=== PATIENT | male | born 1960 | race Caucasian/White ===

== ENCOUNTER 2016-09-26 19:40 | Inpatient (IN) | payer BC, OTHER ==
[~2016-09-26] VITALS: Ht 170.2 cm; Wt 59.9 kg
[2016-09-27] MEDS ORDERED: DICYCLOMINE HCL 20 MG TABLET PO PRN
[2016-09-27] MEDS ORDERED: diphenhydrAMINE 50 MG CAPSULE PO PRN
[2016-09-27] MEDS ORDERED: LOPERAMIDE HCL 2 MG CAPSULE PO PRN ×2
[2016-09-27] MEDS ORDERED: ACETAMINOPHEN 325 MG TABLET PO PRN
[2016-09-27] MEDS ORDERED: THIAMINE HCL 200 MG/2 ML VIAL IM ONE
[2016-09-27] MEDS ORDERED: ONDANSETRON ODT 4 MG TAB.RAPDIS SL PRN
[2016-09-27] MEDS ORDERED: ONDANSETRON 4 MG/2 ML VIAL IM PRN
[2016-09-27] MEDS ORDERED: LORAZEPAM 1 MG TABLET PO PRN ×2
[2016-09-27] MEDS ORDERED: LORAZEPAM 2 MG/1 ML VIAL IM PRN
[2016-09-27] MEDS ORDERED: MAGNESIUM HYDROXIDE 30 ML LIQUID UDC PO PRN
[2016-09-27] MEDS ORDERED: MIRALAX 17 GM POWD.PACK PO PRN
[2016-09-27] MEDS ORDERED: MAG HYDROX/AL HYDROX/SIMETH 30 ML LIQUID UDC PO PRN
[2016-09-27] MEDS ORDERED: CLONIDINE HCL 0.1 MG TABLET PO PRN
[2016-09-27] MEDS ORDERED: IBUPROFEN 400 MG TABLET PO PRN
[2016-09-27 00:15] VITALS: BP 110/71
[2016-09-27] MEDS ORDERED: BUPRENORPHINE HCL 2 MG TAB.SUBL SL PRN (00:15)
--- NOTE | 2016-09-27 00:15 | NUR ---
PRE-ADMISSION NOTE SEEN PATIENT IN INTAKE. PATIENT ABLE TO ANSWER QUESTIONS APPROPRIATELY. PATIENT NOTED MILDLY INTOXICATED , BREATH SMELLS ALCOHOL. PATIENT STATES HE DOES NOT HAVE ANY ALLERGIES. NO SEIZURE HISTORY. PATIENT AMBULATES WITH GAIT SLIGHTLY WOBBLY. PATIENT STATES HES ANXIOUS , C/O HEADACHE , TREMORS AND ABDOMINAL CRAMPING. NO N/V. VS BP-110/71 P-108 T-97.8 R-16. PA-9/10. SpO2 98% IN RA. DISCUSSED TO PATIENT Q2HRS VS, UNIT POLICIES AND SMOKING POLICIES. WILL CONTINUE ADMISSION ON 3RD FLOOR.
[2016-09-27] MEDS ORDERED: THIAMINE HCL 200 MG/2 ML VIAL ONE (00:25)
--- NOTE | 2016-09-27 00:30 | NUR ---
ADMISSION NOTE RECEIVED IN THE UNIT AT THIS TIME. PATIENT IS A 56 YEAR OLD MALE WHO PRESENTS TO 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 HEIGHT IS 57 AND WEIGHT IS 132 LBS. LUNGS CLEAR AND ABDOMEN SOFT AND NON-DISTENDED. BOWEL SOUNDS ACTIVE ON ALL QUADRANT. LAST BOWEL MOVEMENT WAS MORNING BEFORE COMING HERE. NO DIFFICULTY URINATING. UA PROVIDED. BODY CHECK DONE . SKIN INTACT. PATIENT REQUESTED TO BE FULL CODE AND ON REGULAR DIET. PATIENT STATES HES HERE BECAUSE I DON'T WANT TO DO THIS ANYMORE AND MY WORK IS REQUIRING ME TO DO THIS. 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 I DON'T HAVE PCP. PATIENT REPORTS PMH OF DEPRESSION AND GALLBLADDER REMOVAL. I USED TO TAKE PAXIL FOR MY DEPRESSION BUT I HAVEN'T TAKE IT FOR A LONG TIME. HIS LONGEST PERIOD OF SOBRIETY WAS 10 YEARS AGO FOR 2 YEARS. TREATMENT HISTORY : [employer] [employer] 10 YEARS AGO-90 DAYS SUBSTANCE HISTORY: 1.ALCOHOL(RUM)-STARTED DRINKING AT AGE 13. PATIENT DRINKS GALLON DAILY FOR 10 YEARS. LAST DRINK WAS 5TH OF RUM ON 09/26/16 2.HEROIN IV-STARTED USING 2 YEARS AGO. PATIENT INJECTS 1 GRAM DAILY FOR 6 MONTHS. LAST USE WAS GRAM ON 09/25/16 3.METHAMPHETAMINE (SNORT)-STARTED USING AT AGE 16. PATIENT SNORTS 1 GRAM A WEEK/INTERMITTENTLY LAST USE WAS 3 LINES ON 09/24/16 PATIENT ORIENTED TO SURROUNDINGS AND HOW TO USE CALL LIGHT. UDS CAME BACK POSITIVE OF BENZO , PATIENT DENIES TAKING BENZO. DENIES SI/HI. PATIENT DOES NOT HAVE HOME MEDICATION. COWS 17 AND CIWA 13 . WILL CALL MD AND WILL GIVE DETAIL INFORMATION. PATIENT WAS PLACED ON FALL/SEIZURE PRECAUTION. SAFETY MEASURES IN PLACE. CALL LIGHT IN REACH. WILL CONTINUE TO MONITOR. Addendum: 09/28/16 at 0727 by MICHELLE ZAZUETA LVN ADDITIONAL NOTE PATIENT DENIES USING BENZO'S DURING ADMISSION. DR. PATEL NOTES. PATIENT IS USING ATIVAN 6 MG DAILY . LAST USE WAS UPON ADMISSION.
[2016-09-27 01:09] LABS: *AMPHETAMINE, URINE POSITIVE (NEGATIVE); *BARBITURATE, URINE NEGATIVE (NEGATIVE); *CANNABINOID, URINE NEGATIVE (NEGATIVE); *COCCAINE, URINE NEGATIVE (NEGATIVE); *OPIATE, URINE NEGATIVE (NEGATIVE); *PHENCYCLIDINE SCREEN,URINE NEGATIVE (NEGATIVE)
[2016-09-27] MEDS ORDERED: METHOCARBAMOL 750 MG TABLET PO PRN (01:15)
--- NOTE | 2016-09-27 01:19 | NUR ---
PRN BENTYL AND TYLENOL ADMINISTRATION PATIENT C/O ABDOMINAL CRAMPING AND HEADACHE 11/12. PRN TYLENOL AND BENTYL GIVEN. WILL MONITOR FOR EFFECTIVENESS
--- NOTE | 2016-09-27 01:25 | NUR ---
VITAMIN B1 ADMINISTRATION PATIENT WAS GIVEN VITAMIN B1 INJECTION ON LEFT DELTOID.
[2016-09-27] MEDS ORDERED: ACETAMINOPHEN 325 MG TABLET ONE (01:30)
[2016-09-27] MEDS ORDERED: DICYCLOMINE HCL 20 MG TABLET ONE (01:30)
[2016-09-27 01:59] LABS: BASOPHILS # (AUTO) 0.1 K/uL (0.0-8.0); EOSINOPHILS # (AUTO) 0.2 K/uL (0.0-0.7); EOSINOPHILS % (AUTO) 2.2 % (0.0-7.0); HEMATOCRIT 40.9 % (40-50); HEMOGLOBIN 14.5 G/DL (14.0-18.0); LYMPHOCYTES # (AUTO) 2.3 K/UL (0.8-4.8); LYMPHOCYTES % (AUTO) 29.6 % (20.5-51.5); MEAN CORPUSCULAR HEMOGLOBIN 35.1 UUG (27.0-31.0); MEAN CORPUSCULAR HGB CONC 36 g/dL (32.0-37.0); MEAN CORPUSCULAR VOLUME 98.9 FL (82.0-92.0); MONOCYTES # (AUTO) 0.5 K/UL (0.1-1.30); NEUTROPHILS # (AUTO) 4.6 K/UL (1.8-8.9); NEUTROPHILS % (AUTO) 60.2 % (38.5-71.5); PLATELET COUNT (AUTO) 246 K/UL (150-450); RED BLOOD CELL COUNT(AUTO) 4.14 MIL/UL (4.7-6.1); WHITE BLOOD COUNT (AUTO) 7.7 K/UL (4.0-11.2)
--- NOTE | 2016-09-27 02:03 | NUR ---
PRN ATIVAN GIVEN PATIENT C/O SEVERE ANXIETY, RESTLESSNESS , UNABLE TO SIT STILL . PRN ATIVAN GIVEN. CIWA 13. REDIRECTION INEFFECTIVE WILL MONITOR FOR EFFECTIVENESS
[2016-09-27] MEDS ORDERED: LORAZEPAM 1 MG TABLET ONE (02:11)
--- NOTE | 2016-09-27 02:18 | NUR ---
PRN SUBUTEX ADMINISTRATION PATIENT STATES HE DOES NOT FEEL GOOD,PATIENT C/O ANXIETY, STOMACH CRAMPING, SWEATING, RESTLESSNESS, PATIENT STATES HE DOES NOT FEEL GOOD, TREMULOUS. COWS 17. WILL MONITOR FOR EFFECTIVENESS
[2016-09-27 02:21] LABS: BILIRUBIN,TOTAL 1.7 mg/dL (0.2-1.0); CREATININE 1.1 mg/dL (0.6-1.3); MAGNESIUM 1.9 mg/dL (1.8-2.4); POTASSIUM 3.7 mmol/L (3.5-5.1)
[2016-09-27] MEDS ORDERED: BUPRENORPHINE HCL 2 MG TAB.SUBL SL ONE (02:23)
[2016-09-27 02:33] LABS: THYROID STIMULATING HORMONE 1.904 mIU/mL (0.358-3.740)
--- NOTE | 2016-09-27 02:48 | NUR ---
PRN SUBUTEX RE-ASSESSMENT PATIENT STATES SUBUTEX HELPFUL. CIWA IS NOW 5. PATIENT STATES HE FEELS MUCH BETTER
--- NOTE | 2016-09-27 03:03 | NUR ---
PRN ATIVAN RE-ASSESSMENT PATIENT STATES ANXIETY SUBSIDED. ATIVAN HELPFUL. CIWA IS NOW 5.
[2016-09-27 04:00] VITALS: BP 95/63
--- NOTE | 2016-09-27 07:17 | NUR ---
END OF SHIFT NOTE PATIENT NEWLY ADMITTED FOR ETOH/OPIATE AND METH DEPENDENCE. PATIENT WAS GIVEN PRN BENTYL, TYLENOL, SUBUTEX AND ATIVAN. B1 INJECTION GIVEN ON LEFT DELTOID. PATIENT SLEPT 4 HOURS. FLUID INTAKE 1,100. VOIDED X 1. NO BM. LAST COWS 3 AND CIWA 2. ON FALL/SEIZURE PRECAUTION. SAFETY MEASURES IN PLACE. CALL LIGHT IN REACH. WILL CONTINUE TO MONITOR
--- NOTE | 2016-09-27 07:30 | NUR ---
START OF SHIFT NOTE Received report from night nurse, 56 year old male admitted for ETOH, Heroin/Meth dependence. NKA,Regular diet, Full code. Pt reported PMH of depression, gallbladder removal. Pt were given PRN medication per endorsement. Pt slept for 4 hours, Last CIWA-2, COWS-3. Received patient in bed alert awake oriented x4, respirations even and unlabored. Skin intact warm and dry to touch. Educated regarding plan of care for the day and medication regimen with good verbal understanding. Safety measures in place, call light kept with in reach. Will cont to monitor.
[2016-09-27 08:00] VITALS: BP 113/76
[2016-09-27] MEDS: THIAMINE HCL 100 MG TABLET PO SCH (08:46)
[2016-09-27] MEDS: FOLIC ACID 1 MG TABLET PO SCH (08:46)
[2016-09-27] MEDS: LORAZEPAM 1 MG TABLET PO SCH ×4 (08:46→21:31)
[2016-09-27] MEDS: MULTIVITAMINS,THERAPEUTIC TABLET PO SCH (08:46)
[2016-09-27] MEDS ORDERED: TUBERCULIN,PURIF.PROT.DERIV. 5 TU/0.1 ML TEST ID ONE (09:00)
[2016-09-27 12:00] VITALS: BP 109/72
[2016-09-27] MEDS: BUPRENORPHINE HCL 2 MG TAB.SUBL SL SCH ×3 (12:38→21:32)
--- NOTE | 2016-09-27 15:15 | NUR ---
Pt seen and examined by Dr. Calvillo
[2016-09-27 16:00] VITALS: BP 127/87
--- NOTE | 2016-09-27 19:21 | NUR ---
END OF SHIFT NOTE Gave report to night nurse, 56 year old male admitted for ETOH, Heroin/Meth dependence. NKA,Regular diet, Full code. Pt reported PMH of depression, gallbladder removal. Pt started on 5 days Ativan taper this morning tolerating well. Pt did not receive any PRN during shift. Vital signs WNL. Last CIWA-6, COWS-8. Encourage Po fluids as ordered. Patient encouraged to attend group/therapy sessions to learn new coping skills to prevent relapse, denies SI/HI. Patient compliant with plan of care during shift. Safety measures in place. call light kept with in reach. Patient endorsement report given to car shifter nurse. Will cont to monitor.
[2016-09-27 20:00] VITALS: BP 112/77
--- NOTE | 2016-09-27 20:00 | NUR ---
START OF SHIFT NOTE RECEIVED REPORT FROM DAY SHIFT NURSE. PATIENT IS A 56 YEAR OLD MALE ADMITTED FOR ETOH/OPIATE/METH DEPENDENCE. UPON ADMISSION, PATIENT REPORTED ALCOHOL (RUM) /2 GALLON FOR 10 YEARS , HEROIN IV 1 GRAM FOR 6 MONTHS AND METH (SNORT) 1 GRAM FOR A WEEK/ INTERMITTENTLY PATIENT WAS STARTED ON ATIVAN AND SUBUTEX TAPER TODAY. PATIENT IN HIS ROOM MOST OF THE TIME. PATIENT DID NOT REQUIRE ANY PRN MEDICATION. LAST COWS 8 AND CIWA 6. ON FALL/SEIZURE PRECAUTION. SAFETY MEASURES IN PLACE. CALL LIGHT IN REACH. WILL CONTINUE TO MONITOR
[2016-09-28] VITALS: BP 120/75
[2016-09-28 04:00] VITALS: BP 109/76
--- NOTE | 2016-09-28 07:22 | NUR ---
END OF SHIFT NOTE PATIENT IS A 56 YEAR OLD MALE ADMITTED FOR ETOH/OPIATE/METH DEPENDENCE. UPON ADMISSION, PATIENT REPORTED ALCOHOL (RUM) /2 GALLON FOR 10 YEARS , HEROIN IV 1 GRAM FOR 6 MONTHS AND METH (SNORT) 1 GRAM FOR A WEEK/ INTERMITTENTLY PATIENT WAS STARTED ON ATIVAN AND SUBUTEX TAPER TODAY. PATIENT IN HIS ROOM MOST OF THE TIME. PATIENT DID NOT REQUIRE ANY PRN MEDICATION. LAST COWS 8 AND CIWA 6. ON FALL/SEIZURE PRECAUTION. SAFETY MEASURES IN PLACE. CALL LIGHT IN REACH. WILL CONTINUE TO MONITOR. SLEPT 10 HOURS. FLUID INTAKE 791 ML. VOIDED X 2. NO BM. LAST COWS 3 AND CIWA .3
--- NOTE | 2016-09-28 07:25 | NUR ---
Start of Shift Report form night nurse: pt is a 56 y/o male her for Etoh r/t Rum, Opiates r/t Heroin IV 1g daily, Methamphetamine r/t 1g snorted a week and Benzo r/t Ativan 6mg used occasionally; 5 day Ativan and 5 day Subutex tapers ordered. Pt is a full code, Regular diet, NKA, fall and seizure precautions ordered. HHX: Depression, Gallbladder surgery and a relapse. Skin is intact with no open wounds. V/S stable. No PRN medications given last night. No abnormal labs endorsed to me. Last CIWA 3 COWS 3. Pt is asleep in room. Will cont. to monitor the pt.
[2016-09-28 08:00] VITALS: BP 110/67
[2016-09-28] MEDS: LORAZEPAM 1 MG TABLET PO SCH ×3 (08:54→20:59)
[2016-09-28] MEDS: FOLIC ACID 1 MG TABLET PO SCH (08:54)
[2016-09-28] MEDS: THIAMINE HCL 100 MG TABLET PO SCH (08:55)
[2016-09-28] MEDS: MULTIVITAMINS,THERAPEUTIC TABLET PO SCH (08:55)
[2016-09-28 08:58] LABS: BILIRUBIN,DIRECT 0.4 mg/dL (0.0-0.2); CREATININE 1.1 mg/dL (0.6-1.3); MAGNESIUM 1.6 mg/dL (1.8-2.4); POTASSIUM 4.1 mmol/L (3.5-5.1); TOTAL PROTEIN, SERUM 7.3 g/dL (6.4-8.2)
[2016-09-28] MEDS: BUPRENORPHINE HCL 2 MG TAB.SUBL SL SCH ×4 (09:01→20:59)
[2016-09-28 10:12] LABS: HEPATITIS B SURFACE AG Negative (Negative)
[2016-09-28 12:00] VITALS: BP 109/66
[2016-09-28] MEDS ORDERED: MAGNESIUM OXIDE 400 MG TABLET PO ONE ×2 (15:00→21:30)
--- NOTE | 2016-09-28 15:00 | NUR ---
New Orders-Magnesium Low magnesium 1.6; notified Dr. Piper and new orders for Mag-Ox 400mg once given as ordered. Will cont. to monitor the pt.
[2016-09-28 16:00] VITALS: BP 99/72
--- NOTE | 2016-09-28 19:38 | NUR ---
End of Shift Report to night nurse: pt is a 56 y/o male her for Etoh r/t Rum, Opiates r/t Heroin IV 1g daily, Methamphetamine r/t 1g snorted a week and Benzo r/t Ativan 6mg used occasionally; 5 day Ativan and 5 day Subutex tapers ordered. Pt is a full code, Regular diet, NKA, fall and seizure precautions ordered. HHX: Depression, Gallbladder surgery and a relapse. Skin is intact with no open wounds yet pt has pedal edema on left foot so endorse to night nurse to f/u with recommendation of ice packet. V/S stable. Pt c/o oliguria so bladder scan done with 28cc residual and Dr. Piper notified. No PRN medications given during my shift. Last CIWA 4 COWS 8.
[2016-09-28 20:00] VITALS: BP 116/75
--- NOTE | 2016-09-28 20:00 | NUR ---
Start of Shift Pt is a 56 year old male admitted for ETOH/Opiate dependence, placed on 5 day Subutex taper and 5 day Ativan taper. Pt reports consuming Rum 0.5 gall/daily, heroin IV 1g/daily, methamphetamine (snort) 1 g/weekly and reported use of Ativan 6mg intermittently. PMH: Depression and Gallbladder removal, NKA, regular diet, fall/seizure precautions no hx of seizures and full code. Upon assessment, pt presents with anxiety, tremors visible, reports chills/aches throughout body, nose stuffy with teary eyes, mild headache, clammy/sweaty skin, Respirations even/unlabored, denies SOB/chest pain, denies n/v/d, bowel sounds active x4, abdomen soft. Medications due. Safety measures in place, call light within reach, side rails up x2, bed locked and in low position. Will continue to monitor
[2016-09-28] MEDS: GABAPENTIN 300 MG CAPSULE PO SCH (20:58)
[2016-09-28] MEDS: BACLOFEN 10 MG TABLET PO SCH (20:59)
[2016-09-28] MEDS: DICYCLOMINE HCL 20 MG TABLET PO SCH (20:59)
[2016-09-28] MEDS: CLONIDINE HCL 0.1 MG TABLET PO SCH (21:02)
--- NOTE | 2016-09-28 21:45 | NUR ---
Start of Shift Patient is a 56-year old, male, admitted for ETOH, Opiate and Methamphetamine dependence. PT with NKA, on Regular Diet and is Full Code. Pt placed on a 5-day Subutex taper and 5-day Ativan tapers, startetd 09/27/2016. PMH: Depression and Gallbladder removal. Pt is AAOx4 and with mild anxiety noted. No SOB. Pt is ambulatory with steady gait and no skin issues. Fall, universal and safety prec in place. Call light within reach. Latest COWS=5, CIWA=6. Will continue to monitor. Addendum: 09/29/16 at 0242 by NIKA DE LA CRUZ RN Correction: Received Endorsement
[2016-09-29] VITALS: BP 118/82
[2016-09-29 04:00] VITALS: BP 112/79
--- NOTE | 2016-09-29 07:25 | NUR ---
End of Shift Patient is a 56-year old, male, admitted for ETOH, Opiate and Methamphetamine dependence. PT with NKA, on Regular Diet and is Full Code. Pt placed on a 5-day Subutex taper and 5-day Ativan tapers, startetd 09/27/2016. PMH: Depression and Gallbladder removal. Pt is AAOx4 and with mild anxiety noted. No SOB. Pt is ambulatory with steady gait and no skin issues. Fall, universal and safety prec in place. Call light within reach. Latest COWS=4, CIWA=4, slept for 8 hours. Endorsed to AM shift nurse for continuity of care.
--- NOTE | 2016-09-29 07:30 | NUR ---
START OF SHIFT Rcvd endorsement from ongoing nurse, client is in room, a/o x4 , he stated "I have trouble walking because of my Left foot and my feet feel restless." Client reports a hx of gout, he presents with depressed mood, flat affect, flushed face, fine tremors noted, he denies any N/V/D, he denies any SI/HI. He had an uneventful night, he slept 8 hrs. Last COWS 4/ CIWA 4. 3rd of 5 day Subutex/Ativan taper, tolerating well. Client is a 56-year old, male, admitted for alcohol, benzodiazepine and Heroin withdrawal. NKA,Regular Diet, Full Code. Client denies any hx of withdrawal induced seizures. He is on seizure precautions. Call light within reach. Side rails x 2 up/padded. Will continue to monitor.
[2016-09-29 08:00] VITALS: BP 106/65
--- NOTE | 2016-09-29 08:49 | NUR ---
Zero induration noted at Left forearm TB site.
[2016-09-29] MEDS: FOLIC ACID 1 MG TABLET PO SCH (08:52)
[2016-09-29] MEDS: BACLOFEN 10 MG TABLET PO SCH ×3 (08:53→21:00)
[2016-09-29] MEDS: THIAMINE HCL 100 MG TABLET PO SCH (08:53)
[2016-09-29] MEDS: GABAPENTIN 300 MG CAPSULE PO SCH (08:53)
[2016-09-29] MEDS: LORAZEPAM 1 MG TABLET PO SCH ×4 (08:53→21:00)
[2016-09-29] MEDS: MULTIVITAMINS,THERAPEUTIC TABLET PO SCH (08:53)
[2016-09-29] MEDS: CLONIDINE HCL 0.1 MG TABLET PO SCH ×2 (08:53→21:00)
[2016-09-29] MEDS: DICYCLOMINE HCL 20 MG TABLET PO SCH ×3 (08:53→21:00)
[2016-09-29] MEDS ORDERED: BUPRENORPHINE HCL 2 MG TAB.SUBL SL SCH (09:00)
[2016-09-29] MEDS ORDERED: NAPROXEN 500 MG TABLET PO ONE (12:45)
[2016-09-29 12:55] VITALS: BP 98/67
[2016-09-29] MEDS: GABAPENTIN 400 MG CAPSULE PO SCH ×2 (14:47→21:00)
[2016-09-29] MEDS: BUPRENORPHINE HCL 2 MG TAB.SUBL SL SCH ×2 (14:47→21:00)
[2016-09-29 16:55] VITALS: BP 113/63
--- NOTE | 2016-09-29 19:30 | NUR ---
END OF SHIFT Give endorsement to incoming nurse, client is in room, a/o x4 , he continues to presents with depressed mood, flat affect, flushed face and fine tremors noted, he denies any N/V/D, he denies any SI/HI. Client was not compliant with group therapy. One time dose of Naproxin for pain on L big toe administered, noted effective. Last COWS 7/ CIWA 6. 3rd of 5 day Subutex/Ativan taper, tolerating well. Client is a 56-year old, male, admitted for alcohol, benzodiazepine and Heroin withdrawal. NKA,Regular Diet, Full Code. Client denies any hx of withdrawal induced seizures. He is on seizure precautions. Call light within reach. Side rails x 2 up/padded. All needs met.
--- NOTE | 2016-09-29 19:31 | NUR ---
Start of shift note Received report from day shift nurse. Pt is a56 yo male, A+Ox4, presenting to [facility] for ETOH/Opiate/Benzo/Methamphetamine dependence. Pt has NKA, is on Full code status, and on Regular diet. Pt is on Fall and Seizure precautions. Pt has HX of Depression, Gall bladder removal, and gout. Pt is on 5 day Ativan and 5 day Subutex tapers, tolerated well. No s/s of distress noted at this time. Respirations even and unlabored. Will continue to monitor.
[2016-09-29 20:44] VITALS: BP 118/69
[2016-09-29] MEDS: NAPROXEN 500 MG TABLET PO SCH (21:00)
[2016-09-30 00:44] VITALS: BP 107/73
[2016-09-30 04:14] VITALS: BP 118/75
--- NOTE | 2016-09-30 06:57 | NUR ---
End of shift note Pt is a 56 yo male, A+Ox4, presenting to [facility] for ETOH/Opiate/Benzo/Methamphetamine dependence. Pt has NKA, is on Full code status, and on Regular diet. Pt is on Fall and Seizure precautions. Pt has HX of Depression, Gall bladder removal, and gout. Pt is on 5 day Ativan and 5 day Subutex tapers, tolerated well. Pt slept for a total of 9 HRS. Last COWS: 1 and Last CIWA: 2 @0400. No s/s of distress noted at this time. Respirations even and unlabored. Will endorse to day shift nurse.
--- NOTE | 2016-09-30 07:30 | NUR ---
START OF SHIFT Rcvd endorsement from ongoing nurse, client is in room, a/o x4 , he presents with depressed mood, flat affect, he reports restless legs, he denies any N/V/D, he denies any SI/HI. He had an uneventful night, he slept 9 hrs. Last COWS WA 2. 4rd of 5 day Subutex/Ativan taper, tolerating well. Client is a 56-year old, male, admitted for alcohol, benzodiazepine and Heroin withdrawal. NKA,Regular Diet, Full Code. Client denies any hx of withdrawal induced seizures. He is on seizure precautions. Call light within reach. Side rails x 2 up/padded. Will continue to monitor.
[2016-09-30] MEDS: BACLOFEN 10 MG TABLET PO SCH ×3 (08:21→20:18)
[2016-09-30] MEDS: GABAPENTIN 400 MG CAPSULE PO SCH ×3 (08:21→20:18)
[2016-09-30] MEDS: FOLIC ACID 1 MG TABLET PO SCH (08:22)
[2016-09-30] MEDS: BUPRENORPHINE HCL 2 MG TAB.SUBL SL SCH ×3 (08:22→20:18)
[2016-09-30] MEDS: MULTIVITAMINS,THERAPEUTIC TABLET PO SCH (08:22)
[2016-09-30] MEDS: THIAMINE HCL 100 MG TABLET PO SCH (08:22)
[2016-09-30] MEDS: NAPROXEN 500 MG TABLET PO SCH ×2 (08:22→20:18)
[2016-09-30] MEDS: CLONIDINE HCL 0.1 MG TABLET PO SCH ×2 (08:22→20:18)
[2016-09-30] MEDS: FAMOTIDINE 20 MG TABLET PO SCH (08:22)
[2016-09-30] MEDS: LORAZEPAM 1 MG TABLET PO SCH ×3 (08:22→20:18)
[2016-09-30] MEDS: DICYCLOMINE HCL 20 MG TABLET PO SCH ×3 (08:22→20:18)
[2016-09-30 08:38] VITALS: BP 120/79
[2016-09-30 12:00] VITALS: BP 110/70
[2016-09-30 16:55] VITALS: BP 95/73
--- NOTE | 2016-09-30 19:30 | NUR ---
END OF SHIFT Give endorsement to incoming nurse, client is in room, a/o x4 , he continues to presents with depressed mood, flat affect, flushed face and fine tremors noted, he denies any N/V/D, he denies any SI/HI. Client was not compliant with group therapy. Last COWS / 5. 4th of 5 day Subutex/Ativan taper, tolerating well. Client is a 56-year old, male, admitted for alcohol, benzodiazepine and Heroin withdrawal. NKA,Regular Diet, Full Code. Client denies any hx of withdrawal induced seizures. He is on seizure precautions. Call light within reach. Side rails x 2 up/padded. All needs met.
--- NOTE | 2016-09-30 19:33 | NUR ---
Start of shift note Received report from day shift nurse. Pt is a56 yo male, A+Ox4, presenting to [facility] for ETOH/Opiate/Benzo/Methamphetamine dependence. Pt has NKA, is on Full code status, and on Regular diet. Pt is on Fall and Seizure precautions. Pt has HX of Depression, Gall bladder removal, and gout. Pt is on 5 day Ativan and 5 day Subutex tapers, tolerated well. No s/s of distress noted at this time. Respirations even and unlabored. Will continue to monitor.
[2016-09-30 20:33] VITALS: BP 116/76
[2016-10-01 00:12] VITALS: BP 114/80
[2016-10-01 04:07] VITALS: BP 110/76
--- NOTE | 2016-10-01 07:00 | NUR ---
End of shift note Pt is a 56 yo male, A+Ox4, presenting to [facility] for ETOH/Opiate/Benzo/Methamphetamine dependence. Pt has NKA, is on Full code status, and on Regular diet. Pt is on Fall and Seizure precautions. Pt has HX of Depression, Gall bladder removal, and gout. Pt is on 5 day Ativan and 5 day Subutex tapers, tolerated well. Pt slept for a total of 9 HRS. Last COWS: 2 and Last CIWA: 2 @0400. No s/s of distress noted at this time. Respirations even and unlabored. Will endorse to day shift nurse.
--- NOTE | 2016-10-01 07:30 | NUR ---
start of shift note: received pt from shift manager nurse, pt is in stable condition at this time no s/s of pain or discomfort. pt is admitted to [facility] for opiate/etoh/meth/benzo withdrawal/dependence. pt is tolerating taper well. last cows 2 and last ciwa 1. will continue to monitor pt for any changes. and continue to meet pts needs
[2016-10-01] MEDS: BACLOFEN 10 MG TABLET PO SCH ×3 (08:45→22:06)
[2016-10-01] MEDS: NAPROXEN 500 MG TABLET PO SCH ×2 (08:45→21:00)
[2016-10-01] MEDS: BUPRENORPHINE HCL 2 MG TAB.SUBL SL SCH ×2 (08:45→22:07)
[2016-10-01] MEDS: CLONIDINE HCL 0.1 MG TABLET PO SCH ×2 (08:45→22:05)
[2016-10-01] MEDS: DICYCLOMINE HCL 20 MG TABLET PO SCH ×3 (08:45→22:05)
[2016-10-01] MEDS: GABAPENTIN 400 MG CAPSULE PO SCH ×3 (08:45→22:06)
[2016-10-01] MEDS: FOLIC ACID 1 MG TABLET PO SCH (08:45)
[2016-10-01] MEDS: FAMOTIDINE 20 MG TABLET PO SCH (08:46)
[2016-10-01] MEDS: THIAMINE HCL 100 MG TABLET PO SCH (08:46)
[2016-10-01] MEDS: MULTIVITAMINS,THERAPEUTIC TABLET PO SCH (08:46)
[2016-10-01] MEDS: LORAZEPAM 1 MG TABLET PO SCH ×2 (08:46→22:05)
[2016-10-01 08:50] VITALS: BP 101/65
[2016-10-01 13:46] VITALS: BP 99/63
[2016-10-01 17:49] VITALS: BP 122/82
--- NOTE | 2016-10-01 18:56 | NUR ---
END OF SHIFT NOTE: PT IS IN STABLE CONDITION AT THIS TIME, NO S/S OF PAIN OR DISCOMFORT. PT'S LAST COWS 2 AND CIWA 2. PT TOLERATED TAPER MEDICATIONS WELL. PT IS ADMITTED TO [facility] FOR OPIATE/BENZO/METH/ETOH WITHDRAWAL/DEPENDENCE. PT VERBALIZED THE PAIN IN HIS FOOT IS GETTING BETTER. AND SWELLING HAS DECREASED. WILL ENDORSE PT TO [facility] MACHINE MAINTENANCE MECHANIC NURSE.
--- NOTE | 2016-10-01 19:40 | NUR ---
PRN Toradol Pt c/o left foot gout pain 10/12. PRN Toradol administered. Feet are elevated while in bed. Addendum: 10/02/16 at 0207 by GIOVANI BERNABE RN Incorrect time documented.
--- NOTE | 2016-10-01 19:40 | NUR ---
START OF SHIFT Received report from day shift nurse. Pt is lying in bed resting. He is a 56 yo male [facility] for ETOH and opiate dependence. He is A&O and ambulatory. He uses a wheelchair as needed due to gout pain. NKA, full code status, and on regular diet. He has a PMH of gout, gallbladder removal, and depression. On admission he report drinking rum 1/2 gallon per day, using heroin 1 gram per day, methamphetamine 1 gram per week, and Ativan intermittently. 5 day Subutex and 5 day Ativan tapers started 09/27. He reports left foot pain r/t gout, body aches, and anxiety. He has moist skin and mild tremors. Tapers due tonight. Fall and seizure precautions in place. Bed is down with call light in reach.
[2016-10-01 20:00] VITALS: BP 111/68
[2016-10-01] MEDS: KETOROLAC TROMETHAMINE 30 MG INJ IM PRN (22:11)
--- NOTE | 2016-10-01 22:12 | NUR ---
PRN Toradol Pt c/o left foot gout pain 10/12. PRN Toradol administered. Feet are elevated while in bed.
--- NOTE | 2016-10-01 22:42 | NUR ---
PRN Toradol reassessment PRN Toradol effective. Pt reports pain level is reduced to 3/10.
[2016-10-02] VITALS: BP 122/73
--- NOTE | 2016-10-02 02:13 | NUR ---
PRN Benadryl Pt reports inability to sleep. PRN Benadryl administered.
--- NOTE | 2016-10-02 03:13 | NUR ---
PRN Benadryl reassessment PRN Benadryl effective. Pt is lying in bed resting with eyes closed. Respirations even and unlabored. Safety measures in place.
--- NOTE | 2016-10-02 07:00 | NUR ---
Start of Shift Endorsement received from nightshift nurse. Pt is a 56 y/o pt admitted for alcohol and heroin dependence. Pt is on a 5 day Ativan and 5 day Subutex taper. Pt is tolerating both tapers well AEB CIWA 3, COWS 3 at 0400. PT received PRN Toradol and Benadryl. Pt complains of leg pain caused by gout. Pt reports sleeping 5 hours. VS WNL. Full Code. Pt is expected to complete both tapers today. PT is alert and oriented x4. Pt is in STABLE condition at this time. Remains compliant with medication and diet regimen. All needs have been met, All safety measures in place per hospital policy. Bed in lowest position, side rails up x2, call-light within reach. Will continue to monitor
--- NOTE | 2016-10-02 07:26 | NUR ---
END OF SHIFT Report provided to day shift nurse. Pt is lying in bed resting. He is a 56 yo male admitted to [facility] on 09/27 for ETOH and opiate dependence. He is A&O and ambulatory. NKA, full code status, and on regular diet. He has a PMH of gout, gallbladder removal, and depression. On admission he report drinking rum 1/2 gallon per day, using heroin 1 gram per day, methamphetamine 1 gram per week, and Ativan intermittently. He started 5 day Subutex and 5 day Ativan tapers on 09/27. Right foot is swollen and painful r/t gout. He uses a wheelchair as needed. PRN Toradol and Benadryl administered and he slept 4 hours. with legs elevated. Last COWS 3 and CIWA 3. Fall and seizure precautions in place.
[2016-10-02 08:00] VITALS: BP 127/79
[2016-10-02] MEDS ORDERED: BUPRENORPHINE HCL 2 MG TAB.SUBL SL SCH (09:00)
[2016-10-02] MEDS: GABAPENTIN 400 MG CAPSULE PO SCH ×3 (09:48→20:46)
[2016-10-02] MEDS: MULTIVITAMINS,THERAPEUTIC TABLET PO SCH (09:48)
[2016-10-02] MEDS: BACLOFEN 10 MG TABLET PO SCH ×2 (09:48→14:28)
[2016-10-02] MEDS: NAPROXEN 500 MG TABLET PO SCH ×2 (09:49→21:00)
[2016-10-02] MEDS: CLONIDINE HCL 0.1 MG TABLET PO SCH ×2 (09:49→20:46)
[2016-10-02] MEDS: FAMOTIDINE 20 MG TABLET PO SCH (09:49)
[2016-10-02] MEDS: THIAMINE HCL 100 MG TABLET PO SCH (09:49)
[2016-10-02] MEDS: FOLIC ACID 1 MG TABLET PO SCH (09:49)
[2016-10-02] MEDS: DICYCLOMINE HCL 20 MG TABLET PO SCH ×2 (09:49→14:28)
[2016-10-02] MEDS ORDERED: TRAZODONE 50 MG TABLET PO PRN (11:30)
[2016-10-02 12:00] VITALS: BP 120/73
[2016-10-02] MEDS ORDERED: DICYCLOMINE HCL 20 MG TABLET PO PRN (15:45)
[2016-10-02 16:00] VITALS: BP 114/75
[2016-10-02] MEDS ORDERED: BACLOFEN 20 MG TABLET PO PRN (16:00)
[2016-10-02 17:16] LABS: *AMPHETAMINE, URINE NEGATIVE (NEGATIVE); *BARBITURATE, URINE NEGATIVE (NEGATIVE); *CANNABINOID, URINE NEGATIVE (NEGATIVE); *COCCAINE, URINE NEGATIVE (NEGATIVE); *OPIATE, URINE NEGATIVE (NEGATIVE); *PHENCYCLIDINE SCREEN,URINE NEGATIVE (NEGATIVE)
[2016-10-02] MEDS ORDERED: CLON0.1T14 PO (17:18)
[2016-10-02] MEDS ORDERED: BACL20TA PO (17:18)
[2016-10-02] MEDS ORDERED: NAPR500T3 PO (17:18)
[2016-10-02] MEDS ORDERED: TRAZ-144 PO (17:18)
[2016-10-02] MEDS ORDERED: DICY20TA28 PO (17:18)
[2016-10-02] MEDS ORDERED: FAMO20TA8 PO (17:18)
[2016-10-02] MEDS ORDERED: GABA-536 PO (17:18)
[2016-10-02] MEDS ORDERED: DIPH50CA37 PO (17:22)
--- NOTE | 2016-10-02 19:12 | NUR ---
End of Shift Endorsement given to nightshift nurse. Pt is a 56 y/o pt admitted for alcohol and heroin dependence. Pt is on a 5 day Ativan and 5 day Subutex taper. Pt is tolerating both tapers well AEB CIWA 1, COWS 1 at 1600. PT did not receive any PRN medications. Pt has completed both tapers and has been scheduled to be discharged on 10/03/16. All discharge documentation has been completed, all discharge education has been provided. Intake: 1550ml, BM x2, Void x2. VS WNL. Full Code. Pt is expected to complete both tapers today. PT is alert and oriented x4. Pt is in STABLE condition at this time. Remains compliant with medication and diet regimen. All needs have been met, All safety measures in place per hospital policy. Bed in lowest position, side rails up x2, call-light within reach. Will continue to monitor
[2016-10-02 20:00] VITALS: BP 130/72
--- NOTE | 2016-10-02 20:00 | NUR ---
1999 Patient received awake, alert and sitting up in his bed watching television. Patient responds to nurse's greeting and introduction with, " Hi". Patient is oriented to person, place, day, date, time and his personal situation. Patient's color is estevez-pink and his skin is warm, very slightly moist and intact. Patient's Left great toe and immediate area around it, is slightly reddened and moderately swollen and tender to the touch. Patient states, " I have gout and it needs to be treated with some medication, but I talked to Dr. Piper and he said that they don't treat medical conditions on the detox floor. Patient states further that he can barely get around at this time, without a wheelchair for assistance with ambulation and he does not want to go to rehab tomorrow as scheduled, because, " I know they're not going to accommodate me there with this problem, so I need to get this gout fixed first, then I'll be glad to go to rehab. It's not that I don't want to go, I do, just not like this". Patient denies the need for any pain medication at this time and he voices no requests for anything. Vital signs are: 98-94-20 130/72, O2 Sat 98%, COWS 3, CIWA 3. Patient was admitted on 09/26/16 for: Alcohol, Heroin, Meth and Ativan withdrawal and his 5-Day Ativan medication taper and 5-Day Subutex medication taper, have both been completed at this time. Fall/Seizure precautions in place. Patient is cooperative and verbally appropriate when interacting with nurse, though his mood/affect/ facial expressions, are all anxious overall. Patient states that he has been eating his regular diet trays and taking fluids ad omaira with no gastric issues, though he has not been attending [facility] groups regularly at all. Bed is locked and in lowest position, padded bed rails are up X 2 and call light within patient's easy reach.
[2016-10-02] MEDS: KETOROLAC TROMETHAMINE 30 MG INJ IM PRN (20:47)
--- NOTE | 2016-10-02 20:47 | NUR ---
PRN MEDICATION: Prn Toradol 30 mg IM given into right Deltoid per request for c/o "crushing left toe pain", 7/10 pain scale.
[2016-10-02] MEDS ORDERED: BACLOFEN 10 MG TABLET PO PRN (21:00)
--- NOTE | 2016-10-02 21:47 | NUR ---
REASSESSMENT PRN MEDICATION: Patient is downstairs on hospital patio for a smoke break. Unable to reassess patient at this time.
--- NOTE | 2016-10-03 | NUR ---
Patient refused to be awakened for V/S to be done at this time.
--- NOTE | 2016-10-03 01:34 | NUR ---
PRN MEDICATION: Prn Trazadone 50 mg p.o. given per request for sleep medication. Addendum: 10/03/16 at 0425 by SHERI CORTEZ RN [id number] 124/68, COWS 2, CIWA 2
--- NOTE | 2016-10-03 02:34 | NUR ---
REASSESSMENT PRN MEDICATION: Patient is awake, with room lights on, watching TV. Patient encouraged to try get some sleep, by turning off room lights and television. Patient states, " okay".
--- NOTE | 2016-10-03 04:00 | NUR ---
Patient refused to be awakened for V/S to be done at this time.
--- NOTE | 2016-10-03 06:30 | NUR ---
0630 Patient slept a total of 3.0 hours and he had 3 voids and no stools. Total intake was 1,637 ml p.o. Prn medications given noted separately per floor protocol. V/SS afebrile, last COWS 2, last CIWA 2 at 0134. Patient is presently sleeping quietly with eyes closed and respirations even, unlabored at 12.
--- NOTE | 2016-10-03 07:00 | NUR ---
Start of Shift Notes: Received patient in his room. Alert and oriented x 4. Verbally responsive. Respirations even and unlabored. No SOB noted. Skin warm and dry to touch. Abdomen soft and non-distended with (+) BS in all 4 quadrants. No complains of N/V noted at this time. Voids independently. Bladder non-distended. Ambulatory ad omaira with steady gait. Patient is a 56 year old male admitted for opiate and ETOH dependence who completed his 5-day Ativan taper as ordered. No adverse reactions noted. Patient will be discharging today. Prior to admission, patient was using 03/27 gallon of rum, 1 gram of Heroin, 1 gram of methamphetamine, and 6 mg of Ativan intermittently. NKA. FULL CODE. Regular diet. On fall and seizure precautions. Educated patient on his discharge process. Patient verbalized good understanding. Will continue to monitor.
[2016-10-03 08:00] VITALS: BP 112/67
[2016-10-03 08:40] VITALS: BP 112/67
[2016-10-03] MEDS: CLONIDINE HCL 0.1 MG TABLET PO SCH (08:40)
[2016-10-03] MEDS: NAPROXEN 500 MG TABLET PO SCH (08:40)
[2016-10-03] MEDS: GABAPENTIN 400 MG CAPSULE PO SCH (08:41)
[2016-10-03] MEDS: THIAMINE HCL 100 MG TABLET PO SCH (08:41)
[2016-10-03] MEDS: MULTIVITAMINS,THERAPEUTIC TABLET PO SCH (08:41)
[2016-10-03] MEDS: FOLIC ACID 1 MG TABLET PO SCH (08:41)
[2016-10-03] MEDS: FAMOTIDINE 20 MG TABLET PO SCH (08:41)
--- NOTE | 2016-10-03 09:15 | NUR ---
Dischaged: Patient left the unit a this time with all of his personal belongings and dc paperworl. No S/S of withdrawal noted. CIWA 0/COWS 0. VS stable. Complains of 4/10 pain to left great toe due to gout. Educated patient on the discharge instructions and prescriptions by MD Piper. Patient verbalized good understanding of all teachings. Patient was escorted off the unit by dump motorman to be [facility].
== END 2016-10-03 09:15 | disposition other institution (70) | DRG 895 ==
LOC: SRC 23:43 → EDBD 23:43
PROVIDERS: ADMIT Internal Medicine; ATTEND Internal Medicine
PROC: HZ2ZZZZ Detoxification Services for Substance Abuse Treatment (ICD-10-PCS; principal; 2016-09-26)
PROC: HZ31ZZZ Individual Counseling for Substance Abuse Treatment, Behavioral (ICD-10-PCS; 2016-09-29)
DX: F10.230 Alcohol dependence with withdrawal, uncomplicated (principal); K85.20 Alcohol induced acute pancreatitis without necrosis or infection; F10.220 Alcohol dependence with intoxication, uncomplicated; K70.10 Alcoholic hepatitis without ascites; F11.23 Opioid dependence with withdrawal; Y90.8 Blood alcohol level of 240 mg/100 ml or more; F13.230 Sedative, hypnotic or anxiolytic dependence with withdrawal, uncomplicated; F15.10 Other stimulant abuse, uncomplicated; Z90.49 Acquired absence of other specified parts of digestive tract; Z81.1 Family history of alcohol abuse and dependence; F17.210 Nicotine dependence, cigarettes, uncomplicated; F41.9 Anxiety disorder, unspecified; F32.9 Major depressive disorder, single episode, unspecified; M10.9 Gout, unspecified; E83.42 Hypomagnesemia
CPT/HCPCS: 36415; 80307; 80324; 80346; 82746; 83690; 83735; 84443; 85025; 86580; 86592; 86705; 86803; 87340; 87806; G0480; J1885; J3411; Q0163